=== PATIENT | male | born 1995 | race Two or more races ===

== ENCOUNTER 2018-01-26 20:39 | Emergency (ER) | payer OTHER ==
[~2018-01-26] VITALS: Ht 177.8 cm; Wt 102.1 kg
[~2018-01-26 20:39] MED LIST: DIPHENOXYLATE-1 EACH
== END 2018-01-26 22:56 | disposition home or self-care (01) ==
LOC: ER 20:39
DX: B34.9 Viral infection, unspecified (principal)